=== PATIENT | male | born 1970 | race African-American/Black ===

== ENCOUNTER → 2020-09-07 | Outpatient (CLI) | payer OTHER ==
[~2020-09-07] MED LIST: ACHD5005 PO; ASPI-906 PO; HYDR-757 PO; IBP800T PO; SULF1TAB35 PO
--- NOTE | 2020-09-07 11:06 | Diagnostic Imaging Report ---
INDICATION: Back pain EXAM: Lumbar spine FINDINGS: AP and lateral views of the lumbar spine show normal vertebral body height and alignment. There is slight disc space narrowing at L5-S1. Other intervertebral disc spaces are normal. IMPRESSION: Minimal degenerative disc changes at L5-S1. No acute abnormality is seen. Dictated by: Dictated on workstation # [id number]
--- NOTE | 2020-09-07 14:44 | Diagnostic Imaging Report ---
INDICATION: Chronic left hip pain. TIME OF EXAM: 10:57 a.m. FINDINGS: Two views of the left hip demonstrate severe degenerative changes with complete loss of the superior joint space. There is subchondral cyst formation of the acetabulum and femoral head with spurring of the femoral head and neck junction. No fracture or dislocation is identified. IMPRESSION: Osteoarthritic changes of the left hip. No acute bony abnormality is detected. Dictated by: Dictated on workstation # [id number]
== END ==
LOC: RAD 10:08
PROVIDERS: ATTEND Surgery
DX: Z02.71 Encounter for disability determination (principal); M51.37 Other intervertebral disc degeneration, lumbosacral region; M16.12 Unilateral primary osteoarthritis, left hip
CPT/HCPCS: 72100; 73502

== ENCOUNTER 2021-07-20 23:14 | Emergency (ER) | payer SELFPAY ==
[~2021-07-20 23:14] MED LIST changes: -SULF1TAB35 PO; +SULF1TAB38 PO
[2021-07-20] MEDS ORDERED: MIDAZOLAM 5 MG/5 ML (VERSED) VIAL IJ ONE (23:17)
[2021-07-20] MEDS ORDERED: ETOMIDATE IV SOLN 20 MG/10 ML VIAL IV ONE (23:17)
[2021-07-20] MEDS ORDERED: ROCURONIUM 10 MG/ML 5 ML SYRINGE IV ONE (23:17)
[2021-07-20] MEDS ORDERED: DEXTROSE 50% 50 ML (IMS) SYR ONE (23:36)
[2021-07-20 23:45] LABS: BASOPHILS # (AUTO) 0.1 10^3/uL (0.0-0.1); BASOPHILS % (AUTO) 0 % (0-10); EOSINOPHILS # (AUTO) 0.1 10^3/uL (0.0-0.3); EOSINOPHILS % (AUTO) 0 % (0-10); HEMATOCRIT 42 % (40-54); HEMOGLOBIN 14.2 g/dL (13.3-17.7); LYMPHOCYTES # (AUTO) 0.9 10^3/uL (1.0-4.0); LYMPHOCYTES % (AUTO) 4 % (12-44); MEAN CORPUSCULAR HEMOGLOBIN 26 pg (25-34); MEAN CORPUSCULAR HGB CONC 34 g/dL (32-36); MEAN CORPUSCULAR VOLUME 78 fL (80-99); MEAN PLATELET VOLUME 10.3 fL (9.0-12.2); MONOCYTES # (AUTO) 0.1 10^3/uL (0.0-1.0); MONOCYTES % (AUTO) 0 % (0-12); NEUTROPHILS # (AUTO) 23.1 10^3/uL (1.8-7.8); NEUTROPHILS % (AUTO) 94 % (42-75); PLATELET COUNT 59 10^3/uL (130-400); WHITE BLOOD COUNT 24.5 10^3/uL (4.3-11.0)
[2021-07-20] MEDS ORDERED: DEXTROSE 50% 50 ML (IMS) SYR IV ONE (23:45)
[2021-07-20] MEDS ORDERED: LACTATED RINGERS 1,000 ML IV ONE (23:45)
[2021-07-20] MEDS ORDERED: LORazepam INJ 2 MG/ML (ATIVAN) VIAL IVP ONE (23:45)
[2021-07-20 23:51] LABS: ALBUMIN 3.4 GM/DL (3.2-4.5); CHLORIDE 96 MMOL/L (98-107); POTASSIUM 4.4 MMOL/L (3.6-5.0); SODIUM 131 MMOL/L (135-145)
[2021-07-20 23:52] LABS: CALCIUM 8.8 MG/DL (8.5-10.1)
[2021-07-20 23:54] LABS: TOTAL PROTEIN 7.1 GM/DL (6.4-8.2)
[2021-07-20 23:55] LABS: BILIRUBIN,TOTAL 3.5 MG/DL (0.1-1.0); CARBON DIOXIDE 11 MMOL/L (21-32)
[2021-07-20 23:56] LABS: GLUCOSE 49 MG/DL (70-105)
[2021-07-20 23:57] LABS: ALKALINE PHOSPHATASE 111 U/L (40-136); CREATININE SERUM 4.73 MG/DL (0.60-1.30); GFR ESTIMATED 14
[2021-07-20 23:59] LABS: BUN/CREATININE RATIO 6
[2021-07-21] LABS: ALANINE AMINOTRANSFERASE 116 U/L (0-55)
[2021-07-21 00:12] LABS: MAGNESIUM 1.2 MG/DL (1.6-2.4)
[2021-07-21] MEDS ORDERED: CEFEPIME INJECTION 1,000 MG in NS (IVPB) 50 ML IV ONE (00:15)
[2021-07-21] MEDS ORDERED: VANCOMYCIN INJECTION 750 MG in NS (IVPB) 250 ML IV SCH (00:15)
[2021-07-21] MEDS ORDERED: DEXTROSE 50% 50 ML (IMS) SYR IV ONE (00:15)
[2021-07-21 00:18] LABS: BAND NEUTROPHILS 25 %; LYMPHOCYTES % (MANUAL) 4 %; METAMYELOCYTES % 6 %; MONOCYTES % (MANUAL) 1 %; NEUTROPHILS % (MANUAL) 64 %
[2021-07-21 00:19] LABS: RBC MORPH NORMAL; TOXIC GRANULATION/VACUOLAZATIO 4+
[2021-07-21 00:26] LABS: PROTHROMBIN TIME PATIENT 34.1 SEC (12.2-14.7)
[2021-07-21] MEDS ORDERED: DEXTROSE 10% IV SOLUTION 1,000 ML IV ONE ×2 (00:26→00:30)
[2021-07-21 00:27] LABS: FIBRIN DEGRADATION PRODUCTS > 20.00 UG/ML (0.00-0.49); INR 3.3 (0.8-1.4); PARTIAL THROMBOPLASTIN TIME 161 SEC (24-35)
[2021-07-21 00:27] LABS: ABG BASE EXCESS -15.9 MMOL/L (-2.5-2.5); ABG OXYGEN SATURATION 97 % (94-100); ABG PCO2 22 MMHG (35-45); ABG PO2 123 MMHG (79-93); ABG TCO2 10.5 MMOL/L (21.0-31.0)
[2021-07-21] MEDS ORDERED: DEXTROSE 50% 50 ML (IMS) SYR ONE (00:27)
[2021-07-21 00:28] LABS: ABG PH 7.26 (7.37-7.43)
[2021-07-21 00:29] LABS: ALLENS TEST YES-POS
[2021-07-21 00:30] LABS: INSPIRED O2 15L; PATIENT TEMP 36.9; VENTILATOR NO
[2021-07-21] MEDS ORDERED: NS IV 1000 ML 1,000 ML IV ONE (00:30)
[2021-07-21] MEDS ORDERED: NOREPINEPHRINE 8 MG/250 ML 250 ML IV ONE (00:51)
[2021-07-21] MEDS ORDERED: GLUCAGON EMERGENCY 1 MG/KIT IM ONE (01:00)
[2021-07-21] MEDS ORDERED: NOREPINEPHRINE 8 MG/250 ML 250 ML IV SCH (01:00)
[2021-07-21] MEDS ORDERED: PROPOFOL DRIP (ICU) 100 ML IV ONE (01:00)
[2021-07-21] MEDS ORDERED: methylPREDNISolone 125 MG (Solu-MEDROL) VIAL IVP ONE (01:00)
[2021-07-21] MEDS ORDERED: PROPOFOL DRIP (ICU) 100 ML IV SCH (01:15)
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
[2021-07-21 01:37] LABS: CLARITY,URINE SL CLOUDY; COLOR,URINE ORANGE; GLUCOSE, URINE (UA) TRACE (NEGATIVE); KETONES,URINE TRACE (NEGATIVE); LEUKOCYTE ESTERASE ,URINE NEGATIVE (NEGATIVE); NITRITE,URINE NEGATIVE (NEGATIVE); PROTEIN,URINE 3+ (NEGATIVE)
[2021-07-21 01:46] LABS: AMPHETAMINE SCREEN, URINE POSITIVE (NEGATIVE); BENZODIAZEPINES SCREEN URINE NEGATIVE (NEGATIVE); COCAINE SCREEN URINE NEGATIVE (NEGATIVE)
[2021-07-21 01:47] LABS: BARBITURATE SCREEN URINE NEGATIVE (NEGATIVE); CANNABINOID SCREEN, URINE POSITIVE (NEGATIVE); METHADONE STAT NEGATIVE (NEGATIVE); METHAMPHETAMINE SCREEN URINE S POSITIVE (NEGATIVE); OPIATE SCREEN URINE NEGATIVE (NEGATIVE); OXYCODONE STAT NEGATIVE (NEGATIVE); PROPOXYPHENE STAT NEGATIVE (NEGATIVE); TRICYCLIC ANTIDEPRESSANTS SCRE NEGATIVE (NEGATIVE)
[2021-07-21 01:48] LABS: BILIRUBIN,URINE 2+ (NEGATIVE)
[2021-07-21 01:49] LABS: BACTERIA,URINE LARGE /HPF
[2021-07-21] MEDS ORDERED: fentaNYL INJ 100 MCG/2 ML AMP ONE (01:55)
[2021-07-21 02:15] VITALS: BP 141/91
--- NOTE | 2021-07-21 06:48 | Diagnostic Imaging Report ---
INDICATION: Intubation. TECHNIQUE: Single view chest 1:29 AM. CORRELATION STUDY: 07/20/2021 FINDINGS: The tip of the endotracheal tube projects over the lower trachea, approximately 15 mm above the aris. Gastric tube passes below left hemidiaphragm and edge of the film likely terminating in the distal stomach. Heart size, mediastinum and vasculature overall remain prominent. Prominent bilateral perihilar pulmonary infiltrate-like opacities. Additional asymmetric opacity in the right upper lung field along its medial aspect. IMPRESSION: 1. Endotracheal tube lower trachea, approximately 15 mm above the aris. Gastric tube passes into the likely distal stomach. 2. Bilateral perihilar pulmonary opacities including opacity in the right superior para mediastinal region. May reflect infiltrate and/or edema. Short-term follow-up repeat imaging is recommended. Dictated by: Dictated on workstation # [id number]
--- NOTE | 2021-07-21 06:51 | Diagnostic Imaging Report ---
INDICATION: Dyspnea FINDINGS: Heart size within normal limits. There is no effusion or pneumothorax. There are patchy multifocal bilateral interstitial type densities suspicious for pneumonia, correlate clinically. No pleural fluid. No pneumothorax. Impression: Patchy nodular interstitial opacities suspect for nonspecific pneumonia. Radiographic follow-up recommended. Dictated by: Dictated on workstation # [id number]
== END 2021-07-21 02:15 | disposition short-term general hospital (02) ==
LOC: EDUNIT# 23:14 → ER 23:16
DX: A41.9 Sepsis, unspecified organism (principal); R65.21 Severe sepsis with septic shock; J96.01 Acute respiratory failure with hypoxia; N17.9 Acute kidney failure, unspecified; J18.9 Pneumonia, unspecified organism; E87.2 Acidosis; E16.2 Hypoglycemia, unspecified; Z20.822 Contact with and (suspected) exposure to COVID-19
CPT/HCPCS: 31500; 51702; 71045 ×2; 80053; 80306; 81000; 82805; 82947 ×2; 83605; 83735; 83874; 84145; 84484; 85007; 85025; 85027; 85379; 85610; 85730; 86141; 87040; 87088; 87636; 93005; 93041; 99291; 99292; G0480; 36415; 80320